=== PATIENT | male | born 1930 | race Caucasian/White ===

== ENCOUNTER 2018-05-20 17:38 | Inpatient (IN) | payer OTHER ==
[~2018-05-20] VITALS: Ht 162.6 cm; Wt 58.5 kg
[~2018-05-20 17:38] MED LIST: ACETAMINOPHEN-1 EAC1 PO; ASPIR 8181 MG PO; ATENOLOL 100MG100 MG PO; AVODART0.5 MG PO; AZOPT OPHTH1 %/10 M1 OP; CENTRUM SILVER1 EAC2 PO; IMDUR 60 MG TAB60 M1 PO; JANUVIA50 MG PO; LISINOPRIL20 MG PO; METANX CAPSULE1 EACH PO; NITROGLYCERIN0.4 MG SUBLING; NORVASC5 MG PO; PRILOSEC20 MG PO; TRAVATAN Z2.5 ML INTRAOCULR; VITAMIN B-1100 M1 PO; VITAMIN D3400 UNIT PO; VYTORIN 10-201 EACH PO
[2018-05-20 17:42] VITALS: BP 182/92
[2018-05-20 18:00] LABS: ABSOLUTE EOSINOPHILS 0.4 thou/uL (0.0-0.7); ABSOLUTE LYMPHOCYTES 2.2 thou/uL (0.8-5.3); ABSOLUTE MONOCYTES 0.7 thou/uL (0.0-1.2); ABSOLUTE NEUTROPHILS 4.1 thou/uL (1.6-8.1); BASOPHILS 0.6 %; EOSINOPHILS 5.2 %; HEMATOCRIT 34.3 % (42.0-52.0); HEMOGLOBIN 11.6 gm/dL (14.0-18.0); LYMPHOCYTES 29.2 %; MCH 32.3 pg (26.0-34.0); MCHC 33.8 g/dL (28.0-37.0); MCV 95.7 fL (80.0-100.0); MONOCYTES 9.7 %; MPV 9.3 fl. (7.2-11.1); NUCLEATED RBCS 0 /100WBC; PLATELET COUNT* 246 thou/uL (150-400); POLYS 55.3 %; RBC 3.58 mil/uL (4.50-6.00); RDW-CV 12.8 % (10.5-14.5); WBC 7.4 thou/uL (4.0-11.0)
[2018-05-20] MEDS ORDERED: ATENOLOL 50MG T50 M1 PO (18:00)
[2018-05-20] MEDS ORDERED: AVODART0.5 MG PO (18:01)
[2018-05-20] MEDS ORDERED: METANX CAPSULE1 EACH PO (18:02)
[2018-05-20] MEDS ORDERED: CLONIDINE0.1 PO (18:03)
[2018-05-20] MEDS ORDERED: RANEXA500 MG PO (18:04)
[2018-05-20] MEDS ORDERED: VITAMIN B-1100 M1 PO (18:05)
[2018-05-20 18:09] LABS: ANION GAP 7 mmol/L (7-16); APTT 26.4 Seconds (25.0-31.3); BUN 24 mg/dL (7-18); CALCIUM 9.1 mg/dL (8.5-10.1); CHLORIDE 104 mmol/L (98-107); CO2 26 mmol/L (21-32); GLUCOSE 170 mg/dL (70-99); POTASSIUM 4.6 mmol/L (3.5-5.1); SODIUM 137 mmol/L (136-145)
[2018-05-20 18:28] LABS: ALBUMIN 3.5 g/dL (3.4-5.0); ALKALINE PHOSPHATASE 33 U/L (46-116); CK-MB MASS 2.2 ng/mL (<0.5-3.6); LIPASE 83 U/L (73-393); MAGNESIUM 1.8 mg/dL (1.8-2.4); NT-PRO BRAIN NAT PEPTIDE 4116 pg/mL (<300); SGOT 12 U/L (15-37); SGPT 14 U/L (30-65); TOTAL BILIRUBIN 0.3 mg/dL (<0.1-1.0); TOTAL PROTEIN 6.4 g/dL (6.4-8.2); TROPONIN-I LEVEL <0.06 ng/mL (<0.06)
[2018-05-20 19:30] VITALS: BP 179/75
[2018-05-20 19:56] VITALS: BP 189/82
[2018-05-21] VITALS: BP 141/59
[2018-05-21 01:24] LABS: HEMATOCRIT 30.9 % (42.0-52.0); HEMOGLOBIN 10.5 gm/dL (14.0-18.0); MCH 32.6 pg (26.0-34.0); MPV 8.8 fl. (7.2-11.1); RBC 3.22 mil/uL (4.50-6.00); RDW-CV 12.7 % (10.5-14.5); WBC 7.8 thou/uL (4.0-11.0)
[2018-05-21 02:24] LABS: ALBUMIN 3.2 g/dL (3.4-5.0); CALCIUM 8.9 mg/dL (8.5-10.1); MAGNESIUM 1.7 mg/dL (1.8-2.4); POTASSIUM 5.1 mmol/L (3.5-5.1); TOTAL BILIRUBIN 0.4 mg/dL (<0.1-1.0); TOTAL PROTEIN 5.4 g/dL (6.4-8.2)
--- NOTE | 2018-05-21 03:15 | NUR ---
ASSUMED CARE OF PT AT 1945 FROM THE ER. PT IS ALERT AND ORIENTED. VSS. PERRLA. PT DENIES CHEST PAIN. PT IS V PACED. PT IS SLEEPING QUIETLY IN BED. RESPIRATIONS ARE EVEN AND NONLABORED. WILL CONTINUE TO MONITOR PT.
[2018-05-21 04:00] VITALS: BP 156/70
--- NOTE | 2018-05-21 07:10 | NUR ---
CHANGE OF SHIFT BEDSIDE REPORT PATIENT SEEN AT BEDSIDE, IN BED ASLEEP ASSUMED PATIENT CARE
--- NOTE | 2018-05-21 10:43 | EKG ---
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: : [id number] Requested By: Golden Edmonds Order Number: [id number] MD: Mauro Duke Measurements Intervals [place] Rate: 78 P: 0 NE: 62 QRS: 266 QRSD: 193 T: 104 QT: 452 QTc: 515 Interpretive Statements atrial and Ventricular-paced rhythm No further analysis attempted due to paced rhythm Baseline wander in lead(s) III Compared to ECG 08/30/2015 08:10:06 No significant changes Electronically Signed On 05-21-2018 10:43:18 CDT by Mauro Duke [email or web address] <ELECTRONICALLY SIGNED> By: Mauro Duke MD, FACC 05/21/18 1043 1742 1742 Mauro Duke MD, [facility] /EPI
[2018-05-21 11:37] VITALS: BP 156/70
--- NOTE | 2018-05-21 12:23 | 2DMMODE ---
[place] [address] 2 D/M-MODE ECHOCARDIOGRAM Name: ROCHELLE LUNDBERG Room: [address] IN [facility]#: [id number] Admission: 05/20/18 Attend Phys: Rupa Bunn, Discharge: Date of : [birth year] Date of Service: 05/21/18 1222 Report #: [id number] THIS REPORT FOR: //name// APPROVED REPORT Study performed: 05/21/2018 10:19:50 EXAM: Comprehensive 2D, Doppler, and color-flow Echocardiogram Patient Location: In-Patient Room #: [facility] Status: routine BSA: 1.63 HR: 57 bpm BP: 156/70 mmHg Rhythm: NSR Other Information Study Quality: Good Indications angina 2D Dimensions LVEF(%): 43.43 (>50%) IVSd: 10.26 (7-11mm) LVOT Diam: 21.29 (18-24mm) LVDd: 48.62 mm PWd: 9.37 (7-11mm) Ascending Ao: 37.57 (22-36mm) LVDs: 38.19 (25-40mm) Aortic Root: 37.08 mm Ledezma's LVEF: 43.43 % Volumes Left Atrial Volume (Systole) LA ESV Index: 33.30 mL/m2 Aortic Valve AoV Peak Galdino.: 1.09 m/s AO Peak Gr.: 4.71 mmHg LVOT Max P.96 mmHg AO Mean Gr.: 2.50 mmHg LVOT Mean P.84 mmHg LVOT Max V: 0.70 m/s AO V2 VTI: 26.06 cm LVOT Mean V: 0.41 m/s VIOLETA (VTI): 2.48 cm2 LVOT V1 VTI: 18.14 cm AI Atlantic: 2.31 m/s2 AI PHT: 490.[place] [address] 2 D/M-MODE ECHOCARDIOGRAM Name: ROCHELLE LUNDBERG Room: [address] IN ..#: [id number] Admission: 05/20/18 Attend Phys: Rupa Bunn, Discharge: Date of : [birth year] Date of Service: 05/21/18 1222 Report #: [id number] Mitral Valve E/A Ratio: 0.58 MV Decel. Time: 398.44 ms MV E Max Galdino.: 0.56 m/s MV PHT: 115.55 ms MVA (PHT): 1.90 cm2 TDI E/Lateral E': 5.60 E/Medial E': 14.00 Medial E' Galdino.: 0.04 m/s Lateral E' Agldino.: 0.10 m/s Pulmonary Valve PV Peak Galdino.: 0.75 m/s PV Peak Gr.: 2.22 mmHg Tricuspid Valve RAP Estimate: 5.00 mmHg TR Peak Gr.: 29.27 mmHg RVSP: 34.27 mmHg PA Pressure: 34.27 mmHg Left Ventricle The left ventricle is normal size. Regional wall motion abnormalities are noted. akinesis noted of apex and base of inferior wall There is normal left ventricular wall thickness. Left ventricular systolic function is moderately decreased. LVEF is 35-40%. Grade I - abnormal relaxation pattern. Right Ventricle The right ventricle is normal size. The right ventricular systolic function is normal. Pacemaker lead is present in the right ventricle. Atria Left atrium is mildly dilated. The right atrium size is normal. Aortic Valve The Aortic valve is sclerotic. Mild aortic regurgitation. There is no aortic valvular stenosis. Mitral Valve The mitral valve is normal in structure. Mild mitral regurgitation. No evidence of mitral valve stenosis. Tricuspid Valve The tricuspid valve is normal in structure. Mild tricuspid regurgitation. estimated pa pressure 40 [place] [address] 2 D/M-MODE ECHOCARDIOGRAM Name: ROCHELLE LUNDBERG Room: [address] IN M.R.#: [id number] Admission: 05/20/18 Attend Phys: Rupa Bunn, Discharge: Date of : [birth year] Date of Service: 05/21/18 1222 Report #: [id number] Pulmonic Valve The pulmonary valve is normal in structure. Mild pulmonic regurgitation. Great Vessels The aortic root is normal in size. IVC is not well visualized. Pericardium There is no pericardial effusion. <Conclusion> Regional wall motion abnormalities are noted. akinesis noted of apex and base of inferior wall LVEF is 35-40%. Left atrium is mildly dilated. The Aortic valve is sclerotic. Mild aortic regurgitation. Mild mitral regurgitation. Mild tricuspid regurgitation. estimated pa pressure 40 mm Hg <ELECTRONICALLY SIGNED> By: Mauro Duke MD, FACC 05/21/18 1222 1222 122 Mauro Duke MD, FACC /INF
[2018-05-21 12:39] VITALS: BP 142/70
--- NOTE | 2018-05-21 12:50 | CON ---
[address] [address] CONSULTATION Name: ROCHELLE LUNDBERG Room: [address] IN .R.#: [id number] Admission: 05/20/18 Attend Phys: Rupa Bunn MD Discharge: Date of : [birth year] Report #: [id number] THIS REPORT FOR: //name// CC: Rupa Sawyer DATE OF SERVICE: 05/21/2018 HISTORY OF PRESENT ILLNESS: The patient is an 88-year-old white male who I was asked to see in the hospital today with complaint of chest pain. The patient has an extensive past medical history. The patient had previous multivessel bypass surgery at [facility] in 1980. He underwent redo coronary bypass surgery in [facility] in 1995 using vein grafts. He presented in 2014 with high-degree AV block, and I implanted a permanent dual chamber pacemaker. Since that time, he does have frequent episodes of chest pain. It is usually relieved with nitroglycerin. He is not felt to be a very good candidate for repeat heart catheterization in the past because of his advanced age and two of his previous bypass surgeries and chronic kidney disease. His last nuclear stress test in 2012 showed only a small area of infarction of the base of the inferior wall with no significant ischemia and ejection fraction of 47%. His last echocardiogram in 2014 showed an ejection fraction of 40-45%. The patient saw my nurse practitioner in January. He usually has about 3 episodes of angina per week, usually relieved with nitroglycerin. However, yesterday, he went to the store and had some chest pain, went into his arms. He took 2 nitroglycerin, did not seem to help. Finally, an ambulance was called. He was brought here to [place] and admitted. Pain did radiate into his arms, made him short of breath. He has had no recent fever or bleeding. He does get short of breath with exertion. He has had no palpitation or syncope. PAST MEDICAL HISTORY: Otherwise significant for previous cholecystectomy, tonsillectomy, hypertension, diabetes, hyperlipidemia. MEDICATIONS: Consists of atenolol, clonidine, Ranexa, omeprazole, Vytorin, Januvia, aspirin, Imdur. He was taken off lisinopril because of chronic kidney disease, and he was taken off amlodipine because of edema. FAMILY HISTORY: Significant for heart disease. SOCIAL HISTORY: He is . He and his live in [place], [place]. He is retired from the [employer]. Quit smoking in 1980. Does not drink alcohol. REVIEW OF SYSTEMS: He has had no history of stroke, asthma, peptic ulcer disease, liver disease. He has a skin cancer on his scalp that is apparently scheduled [place] [address] CONSULTATION Name: ROCHELLE LUNDBERG Room: [address] IN ..#: [id number] Admission: 05/20/18 Attend Phys: Rupa Bunn MD Discharge: Date of : [birth year] Report #: [id number] PHYSICAL EXAMINATION: GENERAL: Revealed an elderly, frail-appearing male, lying in bed, appeared in no acute distress. VITAL SIGNS: He had a blood pressure of 160/70, his pulse 60. He is afebrile. HEENT: He is anicteric. Conjunctivae pink. Mucous members appear moist. NECK: Veins do not appear distended. No carotid bruits. Neck supple. CHEST: Clear to auscultation. CARDIOVASCULAR: Regular rate and rhythm. ABDOMEN: Soft. EXTREMITIES: Had no edema. Dorsalis pedis pulse could not be palpated. SKIN: Cool and dry. NEUROLOGIC: Nonfocal. LABORATORY DATA: ECG showed AV sequentially paced rhythm. His workup so far, he had a portable chest x-ray that showed normal heart size, pacemaker in place. Previous sternotomy. Normal pulmonary vasculature, thoracic scoliosis. His lab work, sodium 137, BUN 24, creatinine is 2, in the past it has been as high as 3.5. His albumin is only 3.2. Troponin is only 0.06. His white blood cell count 7.8, hemoglobin 10.5. IMPRESSION AND RECOMMENDATIONS: 1. Unstable angina. I will discuss cardiac catheterization with the patient. The patient has been on beta ulisses, nitrates, Ranexa. I would consider adding Plavix. 2. Hypertension. The patient is on a beta ulisses, clonidine. 3. Diabetes. 4. Hyperlipidemia. The patient is on a statin drug. 5. Chronic kidney disease. 6. Skin cancer. 7. History of high-degree atrioventricular block. The patient has a pacemaker in place. <ELECTRONICALLY SIGNED> By: Mauro Duke MD, FACC 05/21/18 1250 1003 1042Davisocratse Duke MD, FACC /nt
--- NOTE | 2018-05-21 15:55 | NUR ---
CM ATEMPTED TO SEE PATIENT TO DISCUSS HOME SITUATION AND DISCHARGE PLANNING NEEDS. PATIENT WITH FAMILY AND REQUEST TO BE SEEN AT ANOTHER TIME. CM WILL REMAIN AVAILABLE TO ASSIST AND FOLLOW NEEDED.
[2018-05-21 16:00] VITALS: BP 123/66
--- NOTE | 2018-05-21 18:31 | NUR ---
PATIENT LAYING IN BED AND WATCHING TV REMAINS A AND O X 4 VPACED LUNGS CTA/DIM./RA GOOD APPETITE LAST BM UNKNOWN GOOD UO UP SBA TO BATHROOM IV 20 GA L HAND SL NO C/O PAIN TODAY CALL LIGHT IN REACH AND INSTRUCTION GIVEN AND FOLLOWED
[2018-05-21 20:15] VITALS: BP 138/70
[2018-05-22] VITALS: BP 102/46
--- NOTE | 2018-05-22 03:22 | NUR ---
ASSUMED CARE OF PT AT 1900. PT IS ALERT AND ORIENTED. VSS. PERRLA. NO COMPLAINTS OF PAIN. STEADY GAIT. NO COMPLAINTS OF SOA. PT IS AV PACED ON THE TELEMETRY. PT IS SLEEPING QUIETLY IN BED. RESPIRATIONS ARE EVEN AND NONLABORED. WILL CONTINUE TO MONITOR PT.
[2018-05-22 03:45] VITALS: BP 123/50
[2018-05-22 06:18] LABS: BE 0 mmol/L (-2 to +3); HCO3 24.8 mmol/L (22.0-26.0); PO2 86.8 mmHg (75.0-100.0)
--- NOTE | 2018-05-22 06:48 | CON ---
[address] [address] CONSULTATION Name: ROCHELLE LUNDBERG Room: [address] IN .R.#: [id number] Admission: 05/20/18 Attend Phys: Rupa Bunn MD Discharge: Date of : [birth year] Report #: [id number] THIS REPORT FOR: //name// CC: Rupa Bunn Livier Silverio DATE OF SERVICE: 05/21/2018 REFERRING PHYSICIAN: Rupa Bunn MD CHIEF COMPLAINT: Dyspnea. HISTORY OF PRESENT ILLNESS: The patient is an 88-year-old male who developed acute onset of shortness of breath. According to the patient, he has had difficulty and trouble with chest pain, which has been somewhat nonspecific over the last several weeks to months. He does have coronary artery disease. He has undergone coronary artery bypass surgery on a couple of different occasions. He has been seen and followed by the Cardiology Service. According to the patient, about 3 years ago, he underwent pacemaker insertion. His initial bypass was in 1980. His second bypass was in 1995. The patient states that yesterday in the evening while not doing anything strenuous, he developed some mild nausea. He decided to sit down and take it easy. It did not improve. He did not have any vomiting. The patient developed chest pain. He did take some medication. I presume this was nitroglycerin. The pain did not improve. He subsequently developed acute onset of shortness of breath. The pain in his chest eventually resolved, but the dyspnea persisted. Shortness of breath was alarming since he has never really had dyspnea in the past. He decided to come to the Emergency Room. Paramedics were summoned. The patient was brought to the hospital. While en route, his shortness of breath resolved and his chest pain had resolved prior to EMS arriving at his home. PAST MEDICAL HISTORY: Significant for coronary artery disease, status post bypass surgery x 2; history of hypertension; and chronic kidney disease. FAMILY HISTORY: Positive for coronary artery disease. SOCIAL HISTORY: He is . He is a prior smoker. He quit several years ago at about 84. According to the patient, he had been a pack-a-day smoker for approximately 35 years. He has never been diagnosed with a respiratory-related disorder. REVIEW OF SYSTEMS: System review negative other than what is outlined above. CURRENT MEDICATIONS: Consist of supplemental oxygen therapy. He is normally not on oxygen at home. He is on acetaminophen, aspirin once a day, atenolol, [place] [address] CONSULTATION Name: TOÑOROCHELLE Room: [address]#: [id number] Admission: 05/20/18 Attend Phys: Rupa Bunn MD Discharge: Date of : [birth year] Report #: [id number] Lipitor, clonidine, vitamin D supplement, Avodart, subcutaneous Lovenox, Zetia, isosorbide mononitrate SA (Imdur SA) once a day, lorazepam p.r.n., magnesium and potassium replacement therapy per protocol. PHYSICAL EXAMINATION: VITAL SIGNS: Blood pressure 156/70, respiratory rate 16 and nonlabored, pulse rate 59, temperature 36.6 degrees. HEENT: Head atraumatic. EYES: Pupils are round and equal, reactive. Oral cavity moist. He has poor dentition. NECK: No adenopathy, JVD or bruits. CHEST: Reveals good breath sounds. No audible wheezes, rales or rhonchi. CARDIOVASCULAR: Distant heart tones, regular rhythm. ABDOMEN: Soft. No organomegaly or tenderness. EXTREMITIES: Without edema. No evidence of clubbing or cyanosis. SKIN: Warm and dry, otherwise. He does have a lesion on his scalp that has a bandage on it from a skin biopsy. 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 NEUROLOGIC: He is able to move all 4 extremities. IMAGING: Chest x-ray negative for acute infiltrates. LABORATORY DATA: Hemoglobin and hematocrit of 10.5 and 31 with a white count of 7800; platelet count 208,000. Electrolytes today sodium 137, potassium 5.1, chloride 105, CO2 of 29, BUN of 24, creatinine 2.0. EGFR of 32. Glucose is elevated and today it was 168. ProBNP was elevated at 4116. Initial troponin on admission was 0.06, it has not gone up during the course of his hospitalization. ASSESSMENT: 1. Coronary artery disease, status post bypass surgery. 2. Chest pain, nonspecific, possibly related to his coronary artery disease. 3. Chronic kidney disease. 4. Acute onset of shortness of breath of undetermined etiology. 5. Prior tobacco abuse. RECOMMENDATION: Because the onset of an acute nature, we will go ahead and obtain a ventilation perfusion scan. The patient has marginal renal function; therefore, CTA would not be appropriate at this time. In addition, we will go ahead and obtain venous Doppler studies. He has been seen by Cardiology Service as well. In the event that the above studies are nondiagnostic, I see no reason why the [address] [address] CONSULTATION Name: ROCHELLE LUNDBERG Room: [address]#: [id number] Admission: 05/20/18 Attend Phys: Rupa Bunn MD Discharge: Date of : [birth year] Report #: [id number] patient cannot be discharged. He was given information for followup office visit if he wishes to pursue his dyspnea condition. <ELECTRONICALLY SIGNED> By: Anjana King MD 05/22/18 0648 1240 [id number] Adorno MD /nt
[2018-05-22 07:28] VITALS: BP 156/70
[2018-05-22 08:45] VITALS: BP 127/61
[2018-05-22] MEDS ORDERED: LASIX 20 MG TAB20 MG PO (11:28)
[2018-05-22] MEDS ORDERED: IMDUR 30 MG TAB30 M1 PO (11:28)
[2018-05-22] MEDS ORDERED: PLAVIX 75 MG TA75 M1 PO (11:28)
[2018-05-22 11:30] VITALS: BP 156/70
[2018-05-22] MEDS ORDERED: RANEXA500 MG PO (12:12)
--- NOTE | 2018-05-22 12:37 | NUR ---
NO COMPLAINTS OF CHEST PAIN THIS SHIFT. IV DC'D. PATIENTS AT BEDSIDE THIS SHIFT. VERBALIZES UNDERSTANDING OF PAPEWORK AND SCRIPTS. PATIENT TAKEN OUT VIA WHEELCHAIR WITH ALL BELONGINGS.
--- NOTE | 2018-05-24 11:29 | NUR ---
Spoke with patients , she states he is doing well, has not had any problems with shortness of breath or chest pain. His appetite is good and he has all the medications he is ordered to be on. They have no concerns at this time.
== END 2018-05-22 12:35 | disposition home or self-care (01) | DRG 302 ==
LOC: M.ERS 17:38 → M.TBA-ER 18:55 → M.2W 18:55
PROVIDERS: Emergency Medicine Emergency Medical Services; Internal Medicine Pulmonary Disease; ADMIT Internal Medicine
DX: I25.119 Atherosclerotic heart disease of native coronary artery with unspecified angina pectoris (principal); N18.6 End stage renal disease; I12.0 Hypertensive chronic kidney disease with stage 5 chronic kidney disease or end stage renal disease; I44.2 Atrioventricular block, complete; I50.32 Chronic diastolic (congestive) heart failure; E11.22 Type 2 diabetes mellitus with diabetic chronic kidney disease; E78.00 Pure hypercholesterolemia, unspecified; I25.2 Old myocardial infarction; E78.5 Hyperlipidemia, unspecified; Z99.2 Dependence on renal dialysis; Z95.1 Presence of aortocoronary bypass graft; Z95.0 Presence of cardiac pacemaker; Z79.82 Long term (current) use of aspirin; Z79.899 Other long term (current) drug therapy; Z90.49 Acquired absence of other specified parts of digestive tract; Z85.828 Personal history of other malignant neoplasm of skin; Z87.891 Personal history of nicotine dependence; Z82.49 Family history of ischemic heart disease and other diseases of the circulatory system